=== PATIENT | male | born 1970 | race Caucasian/White ===

== ENCOUNTER 2021-06-20 08:27 | Emergency (ER) | payer MEDICAID ==
[~2021-06-20] VITALS: Ht 162.6 cm; Wt 77.0 kg
[2021-06-20] MEDS ORDERED: LIDOCAINE HCL/EPINEPHRINE 1%-EPI 1:100,000 20 ML VIAL INFIL ONE (09:00)
[2021-06-20] MEDS ORDERED: IBUPROFEN 600MG TABLET PO ONE (09:00)
[2021-06-20] MEDS ORDERED: ACETAMINOPHEN 325MG TABLET PO ONE (09:00)
[2021-06-20] MEDS ORDERED: BACITRACIN ZINC OINT UDPKT TOP ONE (09:00)
[2021-06-20] MEDS ORDERED: CEPH500T MT (10:26)
[2021-06-20 11:30] VITALS: BP 141/81
== END 2021-06-20 11:32 | disposition home or self-care (01) ==
LOC: ER 08:27
DX: S61.012A Laceration without foreign body of left thumb without damage to nail, initial encounter (principal); Z98.890 Other specified postprocedural states; W26.8XXA Contact with other sharp object(s), not elsewhere classified, initial encounter; Y93.89 Activity, other specified; Y92.89 Other specified places as the place of occurrence of the external cause; Y99.8 Other external cause status
CPT/HCPCS: 12001; 73140; 99283; A4217; J3490; Z7610